=== PATIENT | male | born 1950 | race Caucasian/White ===

== ENCOUNTER 2018-09-10 17:25 | Emergency (ER) | payer MEDICARE ==
[~2018-09-10] VITALS: Ht 177.8 cm; Wt 89.4 kg
[2018-09-10] MEDS ORDERED: IBUPROFEN 200 MG TAB PO STA (17:36)
[2018-09-10] MEDS ORDERED: ONDANSETRON HCL 4 MG ORAL DISINTEGRATING TAB PO ONE (17:45)
[2018-09-10] MEDS ORDERED: ACETAMINOPHEN 325 MG TAB PO ONE (17:45)
[2018-09-10] MEDS ORDERED: CLONIDINE HCL 0.1 MG TAB PO ONE (18:15)
--- NOTE | 2018-09-10 18:22 | Diagnostic Imaging Report ---
EXAMINATION: CXR 2 VIEW - HOPD INDICATION: Fever. Body aches. COMPARISON: None FINDINGS: TUBES and LINES: None. LUNGS: Lungs are well inflated. Lungs are clear. There is no evidence of pneumonia or pulmonary edema. PLEURA: No pleural effusion or pneumothorax. HEART AND MEDIASTINUM: The cardiomediastinal silhouette is unremarkable. BONES AND SOFT TISSUES: There are degenerative changes in the thoracic spine. Soft tissues are unremarkable. UPPER ABDOMEN: No free air under the diaphragm. IMPRESSION: No acute thoracic abnormality. Signed by: Dr. Geovani Solorio M.D. on 09/10/2018 6:18 PM
[2018-09-10 19:07] VITALS: BP 153/76
== END 2018-09-10 19:08 | disposition home or self-care (01) ==
LOC: FSED 17:25
DX: R50.9 Fever, unspecified (principal); R05 Cough; J04.0 Acute laryngitis
CPT/HCPCS: 71046; 81003; 83518; 87400; 99283; Q0162